=== PATIENT | female | born 1985 | race American Indian/Alaskan Native ===

== ENCOUNTER 2017-06-19 14:44 | Emergency (ER) | payer OTHER ==
[2017-06-19 15:04] VITALS: BP 125/88
--- NOTE | 2017-06-19 16:11 | XRay Report ---
FINAL REPORT EXAM: XR FINGER(S) 2+V RT HISTORY: laceration to 5TH DIGIT finger with glass TECHNIQUE: Right 5th finger three views PRIORS: None. FINDINGS: Dressing material overlies the 5th digit partially obscuring soft tissue detail. Within the limits of the study no radiopaque foreign bodies are observed. No fracture is identified. The joint spaces are within normal limits. IMPRESSION: No fracture or radiopaque foreign body identified
[2017-06-19] MEDS ORDERED: XYLOCAINE 2% INFILTRATI ONE (17:26)
[2017-06-19] MEDS ORDERED: ZOFRAN ODT ONE (17:26)
[2017-06-19] MEDS ORDERED: NORCO ONE (17:27)
[2017-06-19] MEDS ORDERED: KEFLEX PO ONE (18:31)
[2017-06-19] MEDS ORDERED: TRIPLE ANTIBIOTIC TP ONE (18:31)
--- NOTE | 2017-06-19 18:38 | Emergency Department Report ---
- General Chief Complaint: Laceration/Recheck/Suture Stated Complaint: LAC Time Seen by Provider: 06/19/17 16:52 Source: patient Mode of arrival: Ambulatory Limitations: No Limitations - History of Present Illness Initial Comments: 31-year-old female past medical history none presents with complaint of deep laceration to the right distal pinky. Patient states she was handling a glass frame and the glass frame broke in her hand and lacerated her finger. It occurred to 3 hours before coming to the ED. Patient is awake and alert. Fully lucid. Visible large laceration to the right lateral pinky finger. Patient is unaware of tetanus status. -: This afternoon Extremity Location: Right: Hand (right distal pinky finger) Place: home Patient Tetanus UTD: No Context: accidental Associated Symptoms: pain - Related Data Previous Rx's Medication Instructions Recorded Last Taken Type Cephalexin [Keflex] 500 mg PO BID #14 capsule 06/19/17 Unknown Rx Ibuprofen [Motrin] 800 mg PO Q8HR PRN #30 tablet 06/19/17 Unknown Rx Neomy/Baci/Polymyx Oint [Triple 1 applicatio TP BID #1 oint 06/19/17 Unknown Rx Antibiotic] Allergies Allergy/AdvReac Type Severity Reaction Status Date / Time No Known Allergies Allergy Unverified 06/19/17 15:05 ED Review of Systems ROS: Stated complaint: LAC Other details as noted in HPI Constitutional: denies: chills, fever Eyes: denies: eye pain, eye discharge, vision change ENT: denies: ear pain, throat pain Respiratory: denies: cough, shortness of breath, wheezing Cardiovascular: denies: chest pain, palpitations Endocrine: no symptoms reported Gastrointestinal: denies: abdominal pain, nausea, diarrhea Genitourinary: denies: urgency, dysuria, discharge Musculoskeletal: denies: back pain, joint swelling, arthralgia Skin: denies: rash, lesions Neurological: denies: headache, weakness, paresthesias Psychiatric: denies: anxiety, depression Hematological/Lymphatic: denies: easy bleeding, easy bruising ED Past Medical Hx - Past Medical History Previous Medical History?: Yes - Surgical History Past Surgical History?: Yes Additional Surgical History: , Myomectomy, Dental surgery - Social History Smoking Status: Never Smoker Substance Use Type: Alcohol, Marijuana - Medications Home Medications: Home Medications Medication Instructions Recorded Confirmed Last Taken Type Cephalexin [Keflex] 500 mg PO BID #14 capsule 06/19/17 Unknown Rx Ibuprofen [Motrin] 800 mg PO Q8HR PRN #30 tablet 06/19/17 Unknown Rx Neomy/Baci/Polymyx Oint [Triple 1 applicatio TP BID #1 oint 06/19/17 Unknown Rx Antibiotic] ED Physical Exam - General Limitations: No Limitations General appearance: alert, in no apparent distress - Head Head exam: Present: atraumatic, normocephalic - Eye Eye exam: Present: normal appearance, PERRL, EOMI - ENT ENT exam: Present: mucous membranes moist - Neck Neck exam: Present: normal inspection - Respiratory Respiratory exam: Present: normal lung sounds bilaterally. Absent: respiratory distress - Cardiovascular Cardiovascular Exam: Present: regular rate, normal rhythm. Absent: systolic murmur, diastolic murmur, rubs, gallop - GI/Abdominal GI/Abdominal exam: Present: soft, normal bowel sounds - Extremities Exam Extremities exam: Present: normal inspection - Expanded Upper Extremity Exam Right Shoulder Exam: Present: normal inspection, full ROM Upper Arm exam: Present: normal inspection, full ROM Elbow exam: Present: normal inspection, full ROM Forearm Wrist exam: Present: normal inspection, full ROM Hand Wrist exam: Present: full ROM (range of motion flexion and extension fully intact right distal pinky finger. Intact against resistance.), laceration ( laceration right distal pinky finger) Hand L/R Front: 1 - Positive: laceration (laceration here) Neuro motor exam: Present: wrist extension intact, thumb opposition intact, thumb IP flexion intact, thumb adduction intact, fingers 2-5 abduction intact Neurosensory exam: Present: radial nerve intact, ulnar nerve intact Vascular: Present: vascular compromise (distal capillary refill is intact on exam all fingers right hand), normal capillary refill - Back Exam Back exam: Present: normal inspection - Neurological Exam Neurological exam: Present: alert, oriented X3, CN II-XII intact, normal gait - Psychiatric Psychiatric exam: Present: normal affect, normal mood - Skin Skin exam: Present: warm, dry, intact, normal color. Absent: rash ED Course Vital Signs 06/19/17 15:00 Temperature 97.7 F Pulse Rate 81 Respiratory 20 Rate Blood Pressure 125/88 O2 Sat by Pulse 98 Oximetry - Laceration /Wound Repair Right Distal Finger Wound Location: upper extremity (distal right pinky finger) Wound Length (cm): 4 Wound's Depth, Shape: linear Irrigated w/ Saline (ccs): 1,000 Betadine Prep?: Yes Anesthesia: 1% Lidocaine Volume Anesthetic (ccs): 6 Wound Debrided: minimal Wound Repaired With: sutures Suture Size/Type: 3:0, nylon Number of Sutures: 11 Layer Closure?: No Sterile Dressing Applied?: Yes (triple antibiotic ointment with gauze outside) Progress: Digital block performed. Good local anesthesia achieved. 11 nylon sutures placed with good closure of wound. Some bleeding stopped with pressure. Procedure tolerated well. Finger covered with triple antibiotic ointment and dry gauze externally. ED Medical Decision Making - Medical Decision Making A/P: Right pinky finger laceration 1-sutures to be removed in 7-10 days 2-tetanus updated today 3-Motrin when necessary, Tylenol 3 when necessary triple antibiotic ointment. Patient given a finger splint 4- pt advised to return to the ED for any fevers chills pus drainage erythema at site of laceration 5- xray unremarkable Critical care attestation.: If time is entered above; I have spent that time in minutes in the direct care of this critically ill patient, excluding procedure time. ED Disposition Clinical Impression: Laceration of right little finger Qualifiers: Encounter type: initial encounter Damage to nail status: without damage Foreign body presence: without foreign body Qualified Code(s): S61.216A - Laceration without foreign body of right little finger without damage to nail, initial encounter Disposition: - TO HOME OR SELFCARE Is pt being admited?: No Does the pt Need Aspirin: No Condition: Stable Instructions: Suture Care (ED), Laceration (ED), Acute Wound Care (ED) Prescriptions: Cephalexin [Keflex] 500 mg PO BID #14 capsule Ibuprofen [Motrin] 800 mg PO Q8HR PRN #30 tablet PRN Reason: Pain Neomy/Baci/Polymyx Oint [Triple Antibiotic] 1 applicatio TP BID #1 oint Referrals: [facility] [Outside] - 3-5 Days [facility] [Outside] - 3-5 Days Forms: Accompanied Note, Work/School Release Form(ED) Time of Disposition: 18:50
[2017-06-19] MEDS ORDERED: BOOSTRIX IM ONE (18:44)
== END 2017-06-19 19:27 | disposition home or self-care (01) ==
LOC: ED 14:44
DX: S61.216A Laceration without foreign body of right little finger without damage to nail, initial encounter (principal); F12.10 Cannabis abuse, uncomplicated; W25.XXXA Contact with sharp glass, initial encounter; Y93.89 Activity, other specified; Y92.89 Other specified places as the place of occurrence of the external cause; Y99.8 Other external cause status
CPT/HCPCS: 90471; 90715; A6250; Q0162